=== PATIENT | female | born 1935 | race Caucasian/White ===

== ENCOUNTER 2024-01-07 12:51 | Emergency (ER) | payer OTHER, MEDICAID ==
[~2024-01-07] VITALS: Ht 152.4 cm; Wt 68.0 kg
[2024-01-07 13:00] VITALS: O2SAT 98
[2024-01-07 13:18] LABS: CLARITY URINE CLOUDY (CLEAR); COLOR URINE YELLOW (YELLOW); GLUCOSE URINE NEGATIVE (NEGATIVE); KETONES URINE NEGATIVE (NEGATIVE); LEUKOCYTE ESTERASE URINE TRACE (NEGATIVE); NITRITE URINE NEGATIVE (NEGATIVE); OCCULT BLOOD URINE NEGATIVE (NEGATIVE); PH URINE 7.5 (4.5-8.0); PROTEIN URINE NEGATIVE (NEGATIVE); SPECIFIC GRAVITY URINE 1.011 (1.005-1.030); UROBILINOGEN URINE 0.2 E.U./dL (0.2-1.0)
[2024-01-07 13:31] LABS: RBC URINE 0-2 /hpf (0-2); SQUAMOUS EPITHELIAL CELL URINE 1+ /lpf (RARE/1+); WBC URINE 0-2 /hpf (0-2)
[2024-01-07 13:32] LABS: BACTERIA URINE 2+; YEAST URINE NONE SEEN
[2024-01-07] MEDS: SODIUM CHLORIDE 0.9% 1,000 ML IV ONE (14:21)
[2024-01-07] MEDS: ONDANSETRON HCL 4MG/2ML INJ IV ONE (14:24)
[2024-01-07] MEDS: ACETAMINOPHEN 325MG TABLET PO ONE (14:24)
[2024-01-07 15:12] LABS: PROTHROMBIN TIME 10.7 sec (9.6-11.0)
[2024-01-07 15:15] LABS: HEMATOCRIT. 35.3 % (36.0-48.0); HEMOGLOBIN. 11.8 g/dL (12.0-16.0); MEAN CORPUSCULAR HEMOGLOBIN 29.6 pg (28.0-32.0); MEAN CORPUSCULAR HGB CONC 33.4 g/dL (31.0-37.0); MEAN CORPUSCULAR VOLUME 88.5 fL (81.0-99.0); MEAN PLATELET VOLUME 7.6 fl (7.4-10.4); PLATELET 252 x1000/uL (130-400); RED BLOOD CELL COUNT 3.98 mill/uL (4.2-5.4); RED CELL DISTRIBUTION WIDTH 14.2 % (11.6-14.6); WHITE BLOOD COUNT 5.9 x1000/uL (4.5-11.0)
[2024-01-07 15:16] LABS: ALANINE AMINOTRANSFERASE 11 IU/L (10-49); ALBUMIN 4.1 g/dL (3.2-4.8); ASPARTATE AMINOTRANSFERASE 22 IU/L (<34); BILIRUBIN TOTAL 0.4 mg/dL (0.1-1.0); CALCIUM 9.1 mg/dL (8.7-10.4); CARBON DIOXIDE 30 mEq/L (21-32); CHLORIDE 106 mEq/L (98-107); CREATININE 0.6 mg/dL (0.6-1.0); GLUCOSE 106 mg/dL (70-105); POTASSIUM 3.3 mEq/L (3.5-5.1); SODIUM 142 mEq/L (136-145); UREA NITROGEN BLOOD 16 mg/dL (9-23)
[2024-01-07 15:19] LABS: DIFFERENTIAL COMMENT 1
[2024-01-07 16:20] LABS: PLATELET ESTIMATE NORMAL
[2024-01-07] MEDS ORDERED: CEPH500T MT (18:21)
[2024-01-07] MEDS: POTASSIUM CHLORIDE 20MEQ/PACKET PO ONE (18:39)
[2024-01-07] MEDS: CEFTRIAXONE 1GM PREMIX 50 ML IV ONE (18:39)
[2024-01-07 19:00] VITALS: BP 186/78; PULSE 77; RESP 17; TEMP 98
== END 2024-01-07 19:20 | disposition home or self-care (01) ==
LOC: ER 12:51
DX: N39.0 Urinary tract infection, site not specified (principal); R10.30 Lower abdominal pain, unspecified; E11.9 Type 2 diabetes mellitus without complications; I10 Essential (primary) hypertension
CPT/HCPCS: 99285; 74176; 96365; 96361; 96375; 80053; 81003; 83605; 83690; 85025; 85610; 87040; 36415; J0696; J2405; J7030